=== PATIENT | male | born 1970 | race Two or more races ===

== ENCOUNTER 2019-12-26 15:08 | Emergency (ER) | payer OTHER ==
[~2019-12-26] VITALS: Ht 175.3 cm; Wt 90.7 kg
--- NOTE | 2019-12-26 15:18 | NUR ---
PATIENT STATES "Dizziness/I felt my BP high/Heart beating fast,I did not feel good", TO ER BED 3, HOOKED TO MONITOR, CHANGED TO HOSP GOWN, WARM BLANKET PROVIDED, PATIENT AAO x 4, BREATHING EVEN AND UNLABORED. DR BLANCO AT BEDSIDE FOR EVAL.
[2019-12-26] MEDS ORDERED: IV NS 0.9% 1,000 ML BAG IV ONE (15:30)
[2019-12-26 15:48] LABS: BASOPHILS % (AUTO) 0.6 % (0.0-2.0); EOSINOPHILS % (AUTO) 2.5 % (0.0-6.0); HEMATOCRIT 42 % (39-51); HEMOGLOBIN 13.9 g/dL (13.5-17.5); LYMPHOCYTES # (AUTO) 1.8 /CMM (0.8-4.8); LYMPHOCYTES % (AUTO) 39.3 % (20.0-44.0); MEAN CORPUSCULAR HGB CONC 33 g/dl (31.0-36.0); MEAN CORPUSCULAR VOLUME 88 fL (80-96); MONOCYTES # (AUTO) 0.4 /CMM (0.1-1.30); MONOCYTES % (AUTO) 7.7 % (2.0-12.0); NEUTROPHILS # (AUTO) 2.3 /CMM (1.8-8.9); NEUTROPHILS % (AUTO) 49.9 % (43.0-81.0); PLATELET COUNT (AUTO) 255 /CMM (150-450); RED BLOOD CELL COUNT(AUTO) 4.75 MIL/uL (4.5-6.0); WHITE BLOOD COUNT (AUTO) 4.6 K/uL (4.3-11.0)
[2019-12-26 16:00] LABS: CALCIUM, SERUM 8.4 mg/dL (8.5-10.1)
[2019-12-26 16:04] LABS: POTASSIUM 2.8 mmol/L (3.5-5.1)
--- NOTE | 2019-12-26 16:12 | NUR ---
PATIENT AMBULATED TO RESTROOM WITH STEADY GAIT.
[2019-12-26 16:25] LABS: ALBUMIN 4.1 g/dL (3.4-5.0); BILIRUBIN,DIRECT 0.2 mg/dL (0.0-0.2); BILIRUBIN,TOTAL 1.1 mg/dL (0.2-1.0); TOTAL PROTEIN, SERUM 7.4 g/dL (6.4-8.2)
[2019-12-26] MEDS ORDERED: POTASSIUM CHLORIDE 10 MEQ/50 ML PREMIXED IVPB FOR PERIPHERAL LINE IV ONE (16:30)
[2019-12-26] MEDS ORDERED: POTASSIUM CHLORIDE 20 MEQ TAB.PRT.SR PO ONE ×2 (16:30→16:42)
[2019-12-26] MEDS ORDERED: POTASSIUM CL. PREMIX PERIPHER. 50 ML ONE (16:43)
--- NOTE | 2019-12-26 17:28 | NUR ---
PATIENT STATED "FEELS MUCH BETTER". KEPT HOOKED TO MONITOR, WILL CONTINUE TO MONITOR ACCORDINGLY
[2019-12-26] MEDS ORDERED: AMLO5TAB9 PO (17:39)
[2019-12-26] MEDS ORDERED: LISI40TA4 PO (17:39)
--- NOTE | 2019-12-26 18:37 | NUR ---
RAPID COVID SWAB DONE AND SENT TO LAB
--- NOTE | 2019-12-26 18:52 | NUR ---
[facility]: [phone]
--- NOTE | 2019-12-26 18:52 | NUR ---
SPOKE TO [facility] OF [facility].
--- NOTE | 2019-12-26 19:28 | NUR ---
received report from DANIEL Saldana. pt appears comfortable at this time.
--- NOTE | 2019-12-26 19:28 | NUR ---
pt states he wants to go home and not to be admitted. informed dr. ha at this time.
--- NOTE | 2019-12-26 19:51 | NUR ---
Patient does not wish to proceed with medical care recommended by Dr. VILLA Patient given information related to possible complications, up to and including , which could occur as a result of leaving the hospital at this time. Patient verbalizes understanding of risks involved due to leaving against medical advice. Patient has signed AMA form. pt ambulatory with steady gait. IV removed. Catheter intact and site benign. Pressure and 4x4 applied to site. No bleeding noted.
[2019-12-26 19:52] VITALS: BP 134/78
== END 2019-12-26 19:52 | disposition left against medical advice (07) ==
LOC: ER 15:58
DX: R42 Dizziness and giddiness (principal); R07.89 Other chest pain; R79.89 Other specified abnormal findings of blood chemistry; R00.0 Tachycardia, unspecified; I10 Essential (primary) hypertension; Z91.14 Patient's other noncompliance with medication regimen; Z79.899 Other long term (current) drug therapy; E87.6 Hypokalemia; Z20.828 Contact with and (suspected) exposure to other viral communicable diseases
CPT/HCPCS: 36415; 71045; 80048; 80076; 84484; 85025; 87081; 87426; 93005; 96360; 96361; 99285; C9803; J3480; J7030

== ENCOUNTER 2020-11-24 17:51 | Emergency (ER) | payer MEDICAID, OTHER ==
[~2020-11-24] VITALS: Ht 175.3 cm; Wt 95.3 kg
[~2020-11-24 17:51] MED LIST: AMLO-212 PO; LISI40TA13 PO
[2020-11-24] MEDS ORDERED: AMLODIPINE BESYLATE 5 MG TABLET PO ONE (18:30)
[2020-11-24] MEDS ORDERED: LISINOPRIL (20MG) 20 MG TABLET PO ONE (18:30)
[2020-11-24] MEDS ORDERED: AMLODIPINE BESYLATE 5 MG TABLET ONE (18:38)
[2020-11-24 18:41] LABS: BASOPHILS % (AUTO) 0.8 % (0.0-2.0); HEMATOCRIT 43 % (39-51); HEMOGLOBIN 14.5 g/dL (13.5-17.5); LYMPHOCYTES # (AUTO) 1.9 K/uL (0.8-4.8); LYMPHOCYTES % (AUTO) 34.1 % (20.0-44.0); MEAN CORPUSCULAR HGB CONC 34 g/dl (31.0-36.0); MEAN CORPUSCULAR VOLUME 88 fL (80-96); MONOCYTES # (AUTO) 0.5 K/uL (0.1-1.30); MONOCYTES % (AUTO) 8.2 % (2.0-12.0); NEUTROPHILS # (AUTO) 3.2 K/uL (1.8-8.9); NEUTROPHILS % (AUTO) 55.9 % (43.0-81.0); PLATELET COUNT (AUTO) 291 K/uL (150-450); RED BLOOD CELL COUNT(AUTO) 4.84 MIL/uL (4.5-6.0); WHITE BLOOD COUNT (AUTO) 5.7 K/uL (4.3-11.0)
--- NOTE | 2020-11-24 18:44 | NUR ---
Patient came in to the er c/o headache and hig blood pressure. On room air, breathing evenly and unlabored. Connected to the monitor and pulse ox. kept comfortable, will continue to monitor accordingly.
--- NOTE | 2020-11-24 18:45 | NUR ---
IV started and blood drawned and sent to lab.
--- NOTE | 2020-11-24 18:52 | NUR ---
urine collected and sent to lab.
[2020-11-24 19:01] LABS: ALBUMIN 4.2 g/dL (3.4-5.0); BILIRUBIN,DIRECT 0.2 mg/dL (0.0-0.2); BILIRUBIN,TOTAL 1.2 mg/dL (0.2-1.0); CALCIUM, SERUM 8.6 mg/dL (8.5-10.1); POTASSIUM 3.8 mmol/L (3.5-5.1); TOTAL PROTEIN, SERUM 7.6 g/dL (6.4-8.2)
[2020-11-24 19:07] LABS: BILIRUBIN,URINE Negative (NEGATIVE); COLOR,URINE YELLOW (YELLOW); LEUKOCYTE ESTERASE ,URINE Negative (NEGATIVE); NITRITE, URINE Negative (NEGATIVE); PH,URINE 8.5 (5.0-8.0); PROTEIN,URINE Negative (NEGATIVE); UGLUCOSE Negative (NEGATIVE); UROBILINOGEN,URINE 0.2 EU/dL (0.2)
--- NOTE | 2020-11-24 19:11 | NUR ---
report given to Donis SANCHEZ for treva.
[2020-11-24] MEDS ORDERED: ASPIRIN 81 MG TAB.CHEW PO ONE (19:30)
[2020-11-24] MEDS ORDERED: ASPIRIN 81 MG TAB.CHEW ONE (19:43)
--- NOTE | 2020-11-24 20:12 | NUR ---
COVID SWAB COLLECTED AND SENT TO THE LAB.
--- NOTE | 2020-11-24 20:48 | NUR ---
TERA SOOD DNP PAGED FOR ADMISSION.
--- NOTE | 2020-11-24 20:50 | NUR ---
ER SILVER DEJESUS TALKING TO TERA SOOD DNP REGARDING PT ADMISSION.
--- NOTE | 2020-11-24 22:39 | NUR ---
Patient does not wish to proceed with medical care recommended by Dr. Sprague. Patient given information related to possible complications, up to and including , which could occur as a result of leaving the hospital at this time. Patient verbalizes understanding of risks involved due to leaving against medical advice. Patient has signed AMA form.
--- NOTE | 2020-11-24 22:59 | NUR ---
IV removed. Catheter intact and site benign. Pressure and 4x4 applied to site. No bleeding noted.
[2020-11-24 23:00] VITALS: BP 125/77
== END 2020-11-24 23:00 | disposition left against medical advice (07) ==
LOC: ER 18:24
DX: I21.4 Non-ST elevation (NSTEMI) myocardial infarction (principal); R51.9 Headache, unspecified; I10 Essential (primary) hypertension; Z79.899 Other long term (current) drug therapy; Z20.822 Contact with and (suspected) exposure to COVID-19
CPT/HCPCS: 36415; 70450; 71045; 80048; 80076; 81003; 83880; 84484; 85025; 87081; 87426; 93005; 99285; C9803

== ENCOUNTER 2022-04-13 15:46 | Inpatient (IN) | payer MEDICAID ==
[~2022-04-13] VITALS: Ht 175.3 cm; Wt 96.2 kg
[2022-04-13] MEDS ORDERED: ASPIRIN 325 MG TABLET PO ONE (16:30)
[2022-04-13 16:42] LABS: BASOPHILS % (AUTO) 0.4 % (0.0-2.0); EOSINOPHILS % (AUTO) 0.8 % (0.0-6.0); HEMATOCRIT 44 % (39-51); HEMOGLOBIN 14.7 g/dL (13.5-17.5); LYMPHOCYTES % (AUTO) 34.3 % (20.0-44.0); MEAN CORPUSCULAR HGB CONC 34 g/dl (31.0-36.0); MEAN CORPUSCULAR VOLUME 86 fL (80-96); MONOCYTES # (AUTO) 0.3 K/uL (0.1-1.30); MONOCYTES % (AUTO) 5.6 % (2.0-12.0); NEUTROPHILS # (AUTO) 3.5 K/uL (1.8-8.9); NEUTROPHILS % (AUTO) 58.9 % (43.0-81.0); PLATELET COUNT (AUTO) 287 K/uL (150-450); RED BLOOD CELL COUNT(AUTO) 5.07 MIL/uL (4.5-6.0)
[2022-04-13] MEDS ORDERED: ASPIRIN 325 MG TABLET ONE (16:44)
[2022-04-13 17:12] LABS: ALANINE AMINOTRANSFERASE 42 U/L (12-78); ALBUMIN 4.6 g/dL (3.4-5.0); ALKALINE PHOSPHATASE 89 U/L (46-116); ASPARTATE AMINOTRANSFERASE 21 U/L (15-37); BILIRUBIN,DIRECT 0.2 mg/dL (0.0-0.2); BILIRUBIN,TOTAL 1.4 mg/dL (0.2-1.0); CALCIUM, SERUM 8.8 mg/dL (8.5-10.1); CARBON DIOXIDE 27 mmol/L (21-32); CHLORIDE 100 mmol/L (98-107); CREATININE 0.9 mg/dL (0.6-1.3); GLUCOSE 128 mg/dL (74-106); SODIUM SERUM 137 mmol/L (136-145); TOTAL PROTEIN, SERUM 8.1 g/dL (6.4-8.2); UREA NITROGEN, BLOOD 11 mg/dL (7-18)
--- NOTE | 2022-04-13 17:30 | NUR ---
Spouse at bedside both pt and family updated with plan of care
--- NOTE | 2022-04-13 17:44 | NUR ---
[facility] CALLED BAR HOSTESS PAGED.
[2022-04-13] MEDS ORDERED: ENOXAPARIN SODIUM 80 MG/0.8 ML DISP.SYRIN SQ ONE (18:00)
[2022-04-13] MEDS ORDERED: ENOXAPARIN SODIUM 100 MG/ML DISP.SYRIN SQ ONE (18:03)
[2022-04-13] MEDS ORDERED: POTASSIUM CL. PREMIX PERIPHER. 50 ML ONE ×2 (18:03→19:50)
[2022-04-13] MEDS: POTASSIUM CL. PREMIX PERIPHER. 50 ML IV SCH ×4 (18:17→21:56)
[2022-04-13] MEDS ORDERED: ZOLPIDEM TARTRATE 5 MG TABLET PO PRN (19:00)
[2022-04-13] MEDS ORDERED: Z GUARD REMEDY 4 OZ OINT TP PRN (19:00)
[2022-04-13] MEDS ORDERED: HYDROCODONE/APAP 5/325MG TABLET PO PRN (19:00)
[2022-04-13] MEDS ORDERED: ONDANSETRON HCL/PF 4 MG/2 ML VIAL IVP PRN (19:00)
[2022-04-13] MEDS ORDERED: MAGNESIUM HYDROXIDE 30 ML UDC PO PRN (19:00)
[2022-04-13] MEDS ORDERED: MAG HYDROX/AL HYDROX/SIMETH 30 ML UDC PO PRN (19:00)
[2022-04-13] MEDS ORDERED: MORPHINE SULFATE INJ 2 MG/ML DISP.SYRIN IV PRN (19:00)
--- NOTE | 2022-04-13 19:12 | NUR ---
NO obvious distress. Aware of plan still awaiting Room assignment. VSS. Report to YUAN Sanabria
--- NOTE | 2022-04-13 19:16 | NUR ---
critical lab trop 122. clinical laboratory aide Frankie reported.
--- NOTE | 2022-04-13 19:27 | NUR ---
RECEIVED REPORT FROM DANIEL YOU. PATIENT CAME WITH CC OF CP. FOR ADMISSION DT NSTEMI. PATIENT IS AAOX4. ABLE TO MAKE NEEDS KNOWN. NO CP, NO SOB, NOT IN CP DISTRESS. PATIENT HAS PERIPHERAL ACCESS ON LEFT AC G20. ATTACHED TO YARD PILOT. VITALS CHECKED.
--- NOTE | 2022-04-13 19:29 | NUR ---
GOT BED 308-2
--- NOTE | 2022-04-13 19:29 | NUR ---
CORINA CHILDERS AT BEDSIDE.
--- NOTE | 2022-04-13 19:35 | NUR ---
REPORT GIVEN TO DANIEL SMITH.
--- NOTE | 2022-04-13 19:59 | NUR ---
KCL 10meq/50ml started and to run for 1 hour.
[2022-04-13 20:00] VITALS: BP 134/87
--- NOTE | 2022-04-13 20:00 | NUR ---
[facility]ENT ADMITTING NOTE PT TRANSPORTED VIA GURNEY TO UNIT AT THIS TIME. PT FROM HOME ADMITTED TO TELE FROM ER UNDER DR CHAVEZ FOR ADMITTING DX OF NSTEMI. A/O X4 AND ABLE TO MAKE NEEDS KNOWN. PT STABLE ON ROOM AIR. NO SOB OR S/S OF RESPIRATORY DISTRESS. BREATHING EVEN AND UNLABORED. ON EXTERNAL STAFF CONSULTANT READING SR 67 BPM. SKIN IS INTACT. AMBULATORY WITH STEADY GAIT. IV ACCESS LAC 20G SL, INTACT AND PATENT. ORIENTED TO UNIT, ROOM, AND STAFF. PT BELONGINGS ACCOUNTED FOR AND BELONGINGS LIST SIGNED. SAFETY PRECAUTIONS IN PLACE. BED IN LOWEST LOCKED POSITION, HOB ELEVATED, SIDE RAILS UP X2, AND CALL LIGHT AND TABLE WITHIN REACH. ALL NEEDS MET AT THIS TIME.
--- NOTE | 2022-04-13 20:13 | NUR ---
TRANSPORTED TO ROOM VIA ACLS
[2022-04-13] MEDS: ACETAMINOPHEN 325 MG TABLET PO PRN (22:43)
--- NOTE | 2022-04-13 22:43 | NUR ---
RN NOTE PT COMPLAINED OF MILD HEADACHE 06/08. ADMINISTERED TYLENOL 650 MG FOR HEADACHE. MADE COMFORTABLE IN BED. ALL NEEDS MET AT THIS TIME.
[2022-04-14] VITALS: BP 132/80
--- NOTE | 2022-04-14 06:47 | NUR ---
INSTRUMENTATION FITTER CLOSING NOTE PT AWAKE IN BED. A/O X4 AND ABLE TO MAKE NEEDS KNOWN. PT STABLE ON ROOM AIR. NO SOB OR S/S OF RESPIRATORY DISTRESS. BREATHING EVEN AND UNLABORED. ON EXTERNAL SEWING MACHINE OPERATOR SEMIAUTOMATIC READING SR 61 BPM. IV ACCESS LAC 20G SL, INTACT AND PATENT. ALL DUE MEDS GIVEN ORDERED. SAFETY PRECAUTIONS IN PLACE AT ALL TIMES. BED IN LOWEST LOCKED POSITION, HOB ELEVATED, SIDE RAILS UP X2, AND CALL LIGHT AND TABLE WITHIN REACH. ALL NEEDS MET AT THIS TIME AND WILL ENDORSE TO ONCOMING NURSE FOR HANNAH.
[2022-04-14 06:59] LABS: BASOPHILS % (AUTO) 0.5 % (0.0-2.0); EOSINOPHILS % (AUTO) 1.6 % (0.0-6.0); HEMATOCRIT 41 % (39-51); HEMOGLOBIN 13.7 g/dL (13.5-17.5); LYMPHOCYTES % (AUTO) 40.4 % (20.0-44.0); MEAN CORPUSCULAR HGB CONC 34 g/dl (31.0-36.0); MEAN CORPUSCULAR VOLUME 86 fL (80-96); MONOCYTES # (AUTO) 0.4 K/uL (0.1-1.30); MONOCYTES % (AUTO) 8.1 % (2.0-12.0); NEUTROPHILS # (AUTO) 2.4 K/uL (1.8-8.9); NEUTROPHILS % (AUTO) 49.4 % (43.0-81.0); PLATELET COUNT (AUTO) 260 K/uL (150-450); RED BLOOD CELL COUNT(AUTO) 4.75 MIL/uL (4.5-6.0); WHITE BLOOD COUNT (AUTO) 4.9 K/uL (4.3-11.0)
[2022-04-14 07:00] VITALS: BP 140/85
[2022-04-14] MEDS ORDERED: ENOXAPARIN SODIUM 100 MG/ML DISP.SYRIN SQ SCH (07:00)
[2022-04-14 07:17] LABS: CALCIUM, SERUM 8.3 mg/dL (8.5-10.1); CREATININE 0.9 mg/dL (0.6-1.3); MAGNESIUM 2.3 mg/dL (1.8-2.4); PHOSPHORUS 3.6 mg/dL (2.5-4.9); POTASSIUM 3.8 mmol/L (3.5-5.1)
[2022-04-14] MEDS ORDERED: PANTOPRAZOLE 40 MG TABLET.DR PO SCH (07:30)
--- NOTE | 2022-04-14 07:34 | NUR ---
LIME TRIMMER OPENING NOTES RECEIVED PATIENT ON BED AWAKE , VERBALLY RESPONSIVE , A/O X 4, ROOM AIR TOLERATING WELL , NO SOB OR DISTRESS NOTED , NO C/O OF PAIN AND DSICOMFORT , ON FIXED INCOME MANAGER READING SR 67 BPM , IV ACCESS , ON LAC G 20 SL , PATENT AND INTACT , SR UP X 2 , BED IN LOWEST POSITION , CALL LIGHT WITHIN REACH AND SAFETY MEASURES PROVIDED , WILL MONITOR FOR ANY CHANGES
[2022-04-14 08:01] LABS: THYROID STIMULATING HORMONE 1.364 uIU/mL (0.358-3.74)
[2022-04-14] MEDS ORDERED: ASPIRIN 81 MG TAB.CHEW PO SCH (09:00)
[2022-04-14] MEDS ORDERED: LISINOPRIL (20MG) 20 MG TABLET PO SCH (09:00)
[2022-04-14] MEDS ORDERED: AMLODIPINE BESYLATE 10 MG TABLET PO SCH (09:00)
[2022-04-14 12:00] VITALS: BP 134/97
[2022-04-14] MEDS: ACETAMINOPHEN 325 MG TABLET PO PRN (15:28)
[2022-04-14 16:00] VITALS: BP 142/90
[2022-04-14] MEDS ORDERED: AMLODIPINE BESYLATE 5 MG TABLET PO SCH (17:00)
--- NOTE | 2022-04-14 18:35 | NUR ---
RN NOTES PATIENT IS REQUESTING TO GO HOME TODAY AND PER RECOMMENDATION FROM THE CARDIOLOGY STANDPOINT PATIENT CAN GO HOME , PRIMARY MD DR CHAVEZ MADE AWARE AND WAITING TO CALL BACK FOR THE NEW ORDER , PATIENT IS INSISTING TO GO HOME RIGHT AWAY AND EXPLAINED TO THEM THAT HE CAN GO AGAINST MEDICAL ADVICE AND THEY AGREED , AMA FORM WAS EXPLAINED BUT THEY WANT THE MEDICATIONS . EXPLAINED TO THEM THERE IS NO ORDER YET AND WE CANNOT PROCESS A PROPER DISCHARGE , DECLINE TO SIGN THE AMA FORM AND THEY SAID THEY WILL WAIT FOR THE DOCTORS ORDER
--- NOTE | 2022-04-14 19:02 | NUR ---
ENDOSCOPY REGISTERED NURSE CLOSING NOTES PATIENT ON BED AWAKE , VERBALLY RESPONSIVE , A/O X 4, ROOM AIR TOLERATING WELL , NO SOB OR DISTRESS NOTED , C/O OF PAIN AND DISCOMFORT - HEADACHE 07/06 AND TYLENOL GIVEN ORDERED AND WITH HELP , AMBULATE AD WAI , ON MANAGER FRONT READING ST 101 BPM , IV ACCESS , ON LAC G 20 SL , PATENT AND INTACT , SR UP X 2 , BED IN LOWEST POSITION , CALL LIGHT WITHIN REACH AND SAFETY MEASURES PROVIDED , ENDORSED TO NEXT SHIFT
--- NOTE | 2022-04-14 20:57 | NUR ---
PATIENT SIGNED AMA PAPER, NO DISTRESS, NO CHEST PAIN, NOTIFIED SOLAR INSTALLER PV JESSICA
== END 2022-04-14 20:50 | disposition left against medical advice (07) | DRG 190 ==
LOC: ER 15:51 → TELE 19:36
PROVIDERS: ADMIT Student in an Organized Health Care Education/Training Program; ATTEND Student in an Organized Health Care Education/Training Program
DX: I21.4 Non-ST elevation (NSTEMI) myocardial infarction (principal); R17 Unspecified jaundice; E87.6 Hypokalemia; I10 Essential (primary) hypertension; Z79.82 Long term (current) use of aspirin; Z79.899 Other long term (current) drug therapy; Z82.49 Family history of ischemic heart disease and other diseases of the circulatory system; Z91.199 Patient's noncompliance with other medical treatment and regimen due to unspecified reason; Z53.29 Procedure and treatment not carried out because of patient's decision for other reasons
CPT/HCPCS: 36415; 71045-TC; 80048-TC; 80076-TC; 83735-TC; 83880; 84100-TC; 84443-TC; 84484-TC; 85025-TC; 87081-TC; 93307-TC; C9803; G0378; J1650; J3480; J7040